=== PATIENT | female | born 1950 | race Caucasian/White ===

== ENCOUNTER 2021-09-20 20:49 | Inpatient (IN) | payer MEDICARE, BC ==
[~2021-09-20] VITALS: Ht 167.6 cm; Wt 56.7 kg
--- NOTE | 2021-09-20 21:03 | NUR ---
BIBSEGARCIA C.O VOMITTING SINCE 5PM. HX OF BOWEL PERF. DENIES HAVING ABD PAIN. AWAITING MD FOR EVAL AND ORDERS.
[2021-09-20 22:15] LABS: BASOPHILS # (AUTO) 0.1 K/uL (0.0-0.2); BASOPHILS % (AUTO) 0.6 % (0.0-2.0); EOSINOPHILS % (AUTO) 2.1 % (0.0-6.0); HEMATOCRIT 48 % (33-45); HEMOGLOBIN 15.4 g/dL (11.5-14.8); LYMPHOCYTES # (AUTO) 1.4 K/uL (0.8-4.8); LYMPHOCYTES % (AUTO) 16.5 % (20.0-44.0); MEAN CORPUSCULAR HGB CONC 32 g/dl (31.0-36.0); MEAN CORPUSCULAR VOLUME 99 fL (82-100); MONOCYTES # (AUTO) 0.6 K/uL (0.1-1.30); NEUTROPHILS # (AUTO) 6.1 K/uL (1.8-8.9); NEUTROPHILS % (AUTO) 73.8 % (43.0-81.0); PLATELET COUNT (AUTO) 167 K/uL (150-450); RED BLOOD CELL COUNT(AUTO) 4.83 MIL/uL (4.0-5.2); WHITE BLOOD COUNT (AUTO) 8.3 K/uL (4.3-11.0)
--- NOTE | 2021-09-20 22:20 | NUR ---
DAUGHTER, MARLENE: [phone]
[2021-09-20 23:44] LABS: CALCIUM, SERUM 9.7 mg/dL (8.5-10.1); CARBON DIOXIDE 32 mmol/L (21-32); CHLORIDE 103 mmol/L (98-107); CREATININE 0.9 mg/dL (0.6-1.3); GLUCOSE 96 mg/dL (74-106); POTASSIUM 3.9 mmol/L (3.5-5.1); SODIUM SERUM 142 mmol/L (136-145); UREA NITROGEN, BLOOD 21 mg/dL (7-18)
[2021-09-20 23:52] LABS: ALANINE AMINOTRANSFERASE 33 U/L (12-78); ALBUMIN 4.1 g/dL (3.4-5.0); ALKALINE PHOSPHATASE 129 U/L (46-116); ASPARTATE AMINOTRANSFERASE 25 U/L (15-37); BILIRUBIN,DIRECT 0.1 mg/dL (0.0-0.2); BILIRUBIN,TOTAL 0.5 mg/dL (0.2-1.0); LIPASE 126 U/L (73-393); TOTAL PROTEIN, SERUM 7.6 g/dL (6.4-8.2)
[2021-09-21] MEDS ORDERED: ONDANSETRON HCL/PF - ER 4 MG/2 ML VIAL IV ONE (00:30)
[2021-09-21] MEDS ORDERED: IV NS 0.9% 1,000 ML BAG IV ONE (00:30)
[2021-09-21] MEDS ORDERED: ONDANSETRON HCL/PF 4 MG/2 ML VIAL ONE (00:33)
--- NOTE | 2021-09-21 00:50 | NUR ---
MRSA SWAB COLLECTED AND SENT TO LAB. PATIENT'S BELONGINGS LIST DONE.
--- NOTE | 2021-09-21 00:50 | NUR ---
COVID TEST SWABBED AND SENT TO LAB. 20G IV LINE ESTABLISHED AT [facility]. PATENT AND INTAKE.
[2021-09-21] MEDS ORDERED: Z GUARD REMEDY 4 OZ OINT TP PRN (01:00)
[2021-09-21] MEDS ORDERED: ACETAMINOPHEN 325 MG TABLET PO PRN (01:00)
[2021-09-21] MEDS ORDERED: ONDANSETRON HCL/PF 4 MG/2 ML VIAL IVP PRN (01:00)
--- NOTE | 2021-09-21 02:28 | NUR ---
REPORT GIVEN TO TAURUS
--- NOTE | 2021-09-21 02:52 | NUR ---
PT TRANSPORTED TO ROOM 323 VIA [facility] WITHOUT INCIDENT.
[2021-09-21] MEDS: IV D5/ 0.9% NACL 1,000 ML IV PRN ×2 (03:05→21:47)
--- NOTE | 2021-09-21 03:05 | NUR ---
admissions nurse notes Received Pt from ER nurse. Pt is alert and orientedX4. On room air. No SOB. No S/S of distress noted. Pt denies any pain at this time. VS is stable. IV site at LAC# 20 is clean, intact and flushes well. Pt is able to ambulates with a steady gait. Pt is NPO per MD ordered. [place] Pt to the room and the use of call light. Pt verbalize understanding. Pt's belonging was checked by TRUNG Sparrow and signed by Pt. Safety precautions is maintained. bed at low position, brakes locked, side rails upX2, hob elevated, and call light is within reach. Will continue to monitor.
[2021-09-21 03:10] VITALS: BP 114/66
--- NOTE | 2021-09-21 04:11 | NUR ---
RN notes Pt signed the consent for XR small bowel follow through.
[2021-09-21 04:58] VITALS: BP 114/66
[2021-09-21 06:36] LABS: CREATININE 0.9 mg/dL (0.6-1.3); MAGNESIUM 1.8 mg/dL (1.8-2.4); PHOSPHORUS 4.2 mg/dL (2.5-4.9); POTASSIUM 3.5 mmol/L (3.5-5.1)
[2021-09-21 06:40] LABS: BASOPHILS % (AUTO) 0.6 % (0.0-2.0); EOSINOPHILS % (AUTO) 2.6 % (0.0-6.0); HEMATOCRIT 41 % (33-45); HEMOGLOBIN 13.5 g/dL (11.5-14.8); LYMPHOCYTES # (AUTO) 1.9 K/uL (0.8-4.8); LYMPHOCYTES % (AUTO) 25.5 % (20.0-44.0); MEAN CORPUSCULAR HGB CONC 33 g/dl (31.0-36.0); MEAN CORPUSCULAR VOLUME 96 fL (82-100); MONOCYTES # (AUTO) 0.7 K/uL (0.1-1.30); NEUTROPHILS # (AUTO) 4.5 K/uL (1.8-8.9); NEUTROPHILS % (AUTO) 61.3 % (43.0-81.0); PLATELET COUNT (AUTO) 193 K/uL (150-450); WHITE BLOOD COUNT (AUTO) 7.3 K/uL (4.3-11.0)
--- NOTE | 2021-09-21 06:40 | NUR ---
RN closing notes Pt is resting in bed comfortably. Pt is alert and orientedX4. On room air. No SOB. No S/S of distress noted. VS is stable. IV site at LAC# 20 is clean, intact and infuising well D5NS@ 75ml/hr. Pt is NPO. Kept Pt clean, dry and comfortable. all needs met and attended. Safety precautions is maintained. bed at low position, brakes locked, side rails upX2, hob elevated, and call light is within reach. Will endorse to am nurse for PAT.
[2021-09-21] MEDS ORDERED: ATOR20TA PO (07:19)
[2021-09-21] MEDS ORDERED: PANT40TA49 PO (07:19)
[2021-09-21] MEDS ORDERED: METO-357 PO (07:19)
[2021-09-21] MEDS ORDERED: BUPR150T10 PO (07:19)
[2021-09-21 08:18] VITALS: BP 112/59
--- NOTE | 2021-09-21 09:10 | NUR ---
ng tube inserted without difficulty #16.
[2021-09-21] MEDS: ENOXAPARIN SODIUM 40 MG/0.4 ML DISP.SYRIN SQ SCH (09:40)
[2021-09-21] MEDS ORDERED: DIATR MEGLU/DIATRIZOATE SODIUM 120 ML BOTTLE (GASTROGRAPHIN) ONE (11:03)
--- NOTE | 2021-09-21 14:30 | NUR ---
sm. bowel follow thru complete.pt.having stool very freq.and ng inadvertently fell out. dr. keys notified,states to leave ng out.report of xray given to .
--- NOTE | 2021-09-21 15:00 | NUR ---
lazara tran called as pt. had scant emesis of mucus with small amt. of clear liq.additionally given bowel xray report.instructed to give zofran and order clear liq. in one hr. if no nausea.
[2021-09-21 16:07] VITALS: BP 110/57
--- NOTE | 2021-09-21 18:42 | NUR ---
TOLERATING CLEAR LIQ. DIET.
--- NOTE | 2021-09-21 19:30 | NUR ---
RN OPENING NOTE PATIENT IN BED, AWAKE WITH DAUGHTER AT BEDSIDE. PATIENT CURRENTLY ON RA, TOLERATING WELL NO SOB OR ANY RESPIRATORY DISTRESS. PATIENT IS A/O X 4 ABLE TO MAKE NEEDS KNOWN, NOTED TO BE HARD OF HEARING. DAUGHTER WILL BRING HEARING AIDS. PATIENT CURRENTLY ON CLEAR LIQUID DIET, TOLERATING WELL WITH NO COMPLAINTS OF NAUSEA OR VOMITING. PATIENT HAS A LAC 20 G WITH D5NS @ 75 ML/HR ONGOING. NO COMPLAINS OF PAIN AT THIS TIME. SAFETY MEASURES IN PLACE: BED LOCKED AND IN LOWEST POSITION, CALL LIGHT WITHIN REACH, SIDE RAILS UP. WILL MONITOR PATIENT CLOSELY.
[2021-09-21 20:00] VITALS: BP 103/64
--- NOTE | 2021-09-22 02:08 | NUR ---
RN NOTE PATIENT REQUESTING SLEEPING MED, NOTIFIED MD. AWAITING ORDER.
[2021-09-22] MEDS ORDERED: TEMAZEPAM 7.5 MG CAPSULE PO PRN (02:30)
--- NOTE | 2021-09-22 02:56 | NUR ---
TEMAZEPAM GIVEN TO HELP PATIENT SLEEP.
[2021-09-22 08:00] VITALS: BP 110/72
--- NOTE | 2021-09-22 08:00 | NUR ---
MS RN OPENING NOTE Patient in bed, asleep. A/O x 4. On room air, breathing evenly and unlabored. No SOB or s/s of distress noted. IV acces son LAC #20G infusing D5NS at 75 ml/hr. Safety measures in place: bed in low, locked position; siderails up x 2; call light within reach. Will continue to monitor.
[2021-09-22] MEDS ORDERED: buPROPion SR 150 MG TABLET.ER PO SCH (09:00)
[2021-09-22] MEDS ORDERED: PANTOPRAZOLE 40 MG TABLET.DR PO SCH (09:00)
[2021-09-22] MEDS ORDERED: METOPROLOL SUCCINATE 50 MG TAB.SR.24H PO SCH (09:00)
[2021-09-22 09:21] VITALS: BP 110/72
[2021-09-22] MEDS: ENOXAPARIN SODIUM 40 MG/0.4 ML DISP.SYRIN SQ SCH (09:22)
--- NOTE | 2021-09-22 14:00 | NUR ---
DISCHARGE NOTE Received order for discharge. Patient denies any pain or discomfort at this time. Discharge instructions given to patient both verbally and in written form, verbalized understanding. All belongings accounted for, belonging sheet signed. IV access removed, no signs of bleeding noted. ID band removed. Patient left in stable condition via private car with daughterTamara.
[2021-09-22] MEDS ORDERED: ATORVASTATIN 10 MG TABLET PO SCH (22:00)
== END 2021-09-22 14:20 | disposition home or self-care (01) | DRG 390 ==
LOC: ER 20:55 → MED 09-21 00:55
PROVIDERS: ADMIT Internal Medicine; ATTEND Internal Medicine
DX: K56.600 Partial intestinal obstruction, unspecified as to cause (principal); K59.00 Constipation, unspecified; I10 Essential (primary) hypertension; E78.5 Hyperlipidemia, unspecified; Z90.49 Acquired absence of other specified parts of digestive tract; Z20.822 Contact with and (suspected) exposure to COVID-19
CPT/HCPCS: 36415; 74250-TC; 80048-TC; 80061-TC; 80076-TC; 83690-TC; 83735-TC; 84100-TC; 84484-TC; 85025-TC; 87081-TC; G0378; J1650; J2405; J7030; J7042; Q9963